=== PATIENT | male | born 1940 | race Caucasian/White ===

== ENCOUNTER 2019-03-02 08:24 | Day surgery (SDC) | payer MEDICARE, BC ==
[2019-03-02 08:59] LABS: ANION GAP 9.4 mmol/L (8-16); CALCIUM 9.2 mg/dL (8.5-10.1); CARBON DIOXIDE 31.5 mmol/L (21.0-32.0); CREATININE - SERUM 1.2 mg/dL (0.6-1.3); POTASSIUM - SERUM 3.9 mmol/L (3.5-5.1)
[2019-03-02 09:03] LABS: INR 1.09 (0.85-1.17); PROTIME 13.6 SECONDS (11.6-15.0)
[2019-03-02 09:13] LABS: HEMATOCRIT 33.3 % (42.0-54.0); HEMOGLOBIN 11.9 g/dL (13.5-17.5); LYMPHOCYTES 20.7 % (15-50); MCH 30.9 pg (26.0-34.0); MCHC 35.7 g/dL (31.0-37.0); MCV 86.5 fL (80.0-100.0); MEAN PLATELET VOLUME 9.5 fL (7.4-10.4); NEUTROPHILS 69.5 % (40-80); PLATELET COUNT 153 10x3/uL (130-400); RBC 3.85 10x6/uL (4.20-6.10); RDW 13.8 % (11.5-14.5); WBC 3.8 10x3/uL (4.8-10.8)
[2019-03-02] MEDS ORDERED: COUMADIN2 MG PO (11:20)
[2019-03-02] MEDS ORDERED: COUMADIN4 MG PO (11:22)
[2019-03-02] MEDS ORDERED: TORSEMIDE20 MG PO (11:23)
[2019-03-02] MEDS ORDERED: FLOMAX0.4 MG PO (11:23)
[2019-03-02] MEDS ORDERED: LISINOPRIL10 MG PO (11:23)
[2019-03-02] MEDS ORDERED: CALAN SR240 MG (11:24)
[2019-03-02] MEDS ORDERED: TOPROL XL25 MG (11:24)
[2019-03-02] MEDS ORDERED: BAYER CHEWABLE81 MG PO (11:25)
[2019-03-02 11:42] VITALS: BP 106/48; BMI 25.7
[2019-03-02] MEDS ORDERED: ULTRAM50 MG PO (15:32)
--- NOTE | 2019-03-02 18:54 | NUR ---
1830 ASSISTED TO BATHROOM WITH HELP AND CANE. BALANCE UNSTEADY. UNABLE TO URINATE. NO SENSATION. IVF ON PUMP AT 125/HR. DENIES PAIN AND MAINTANED A ICE PACK TO INCISION SITE.
--- NOTE | 2019-03-02 20:31 | NUR ---
2010 PT VOIDED GOOD AMT. X3. MEDICATED PRIOR TO GOING HOME, DRESSING CLEAN DRY AND INTACT.
--- NOTE | 2019-03-05 11:43 | OP ---
PATIENT NAME: CHRISTINA SARAVIA MEDICAL RECORD: [id number] :41 [facility] [place] ADMISSION DATE: SURGEON: ALEJANDRO RUIZ MD DATE OF OPERATION: 03/02/2019 REFERRED BY: Dr. Makayla Dempsey of [place]. PREOPERATIVE DIAGNOSIS: Initial reducible left inguinal hernia. POSTOPERATIVE DIAGNOSIS: Initial reducible combined direct and indirect left inguinal hernia. OPERATION PERFORMED: Open repair utilizing PerFix mesh plug and patch with 2 plugs; 1 size extra large and 1 size large. ANESTHESIA: General with LMA per [facility]. SURGEON: Alejandro Ruiz MD PREOPERATIVE NOTE: Mr. Saravia is a very nice 78-year-old white male patient from [place], [place]. He was referred to me by Dr. Makayla Dempsey. I have previously repaired right-sided inguinal hernia. He now has a symptomatic reducible left inguinal hernia, for which he is brought to the hospital for repair. DESCRIPTION OF THE PROCEDURE: Under general anesthesia in the supine position, the patient was prepped and draped in a sterile manner. A transversely oriented incision was made over the groin and the skin and subcutaneous tissues divided with electrocautery. The external oblique aponeurosis was opened through the external ring and the underlying cord and indirect hernia sac mobilized and retracted with a Kinzers drain. The indirect hernia sac was quite easy to separate from the cord structures and easy to reduce into the preperitoneal space. I also found a small direct inguinal hernia with a fascial defect of about a centimeter and a half with a small protrusion of preperitoneal fat. This was opened more widely and the preperitoneal fat reduced. I placed a size large PerFix Light plug in the direct defect and a size extra large PerFix Light plug in the indirect or in the internal ring. The mesh was sutured to the surrounding tissue with interrupted simple 3-0 Vicryl sutures. The PerFix light mesh was sutured to the pubis and Shiva's ligament and to the internal oblique and fascia superiorly. It was split and the legs were passed around the cord to create a new internal ring. The cord was then replaced in the inguinal canal and the external oblique aponeurosis approximated with interrupted simple 3-0 Vicryl sutures. The wound was then infiltrated with 0.25% Marcaine with epinephrine. Vanessa's fascia was then approximated with interrupted and inverted 3-0 Vicryl and skin was closed with a running intracuticular 4-0 Stratafix suture. The skin was further closed and sealed with Dermabond glue and dressed with Maxorb Ag, Tegaderm, and Cavilon skin prep. He was awakened and taken to the recovery room. Blood loss was 0. None replaced. Obviously sponges, instruments, and needles were accounted for. No drain was used and no surgical specimen was submitted for histopathology. PLAN: The patient will go home today to recover at home. He is given a OPERATIVE REPORT [id number] CHRISTINA SARAVIA prescription for tramadol for pain and encouraged to take MiraLax daily and Flomax to help prevent or treat any urinary retention. He is given my home cell number or my private cell number so he can call me if needed any time before his return appointment to see me, which is in 2 weeks. He can leave the initial operative dressing intact as long as it stays clean and dry and when and if he needs to change the dressing he can cover it with a clean, dry sterile gauze. He is to resume activities as tolerated and continue his regular medications and diet. TRANSINT:[id number] Voice Confirmation ID: [id number] DOCUMENT ID: [id number] ALEJANDRO RUIZ MD at 1143 CC: MAKAYLA DEMPSEY MD [id number] DICTATION DATE: 03/02/19 1547 COURTROOM DEPUTY: 03/02/192038 [facility] 03/02/19 [place] [id number]
== END 2019-03-02 20:30 | disposition home or self-care (01) ==
LOC: D.OPS 08:24
PROVIDERS: ATTEND Surgery
DX: K40.90 Unilateral inguinal hernia, without obstruction or gangrene, not specified as recurrent (principal); Z01.812 Encounter for preprocedural laboratory examination